=== PATIENT | male | born 1975 | race Hispanic/Latino ===

== ENCOUNTER → 2019-11-21 | Outpatient (CLI) | payer OTHER ==
--- NOTE | 2019-11-21 15:30 | Diagnostic Imaging Report ---
History: Low back pain Comparison studies: None Technique: Sagittal, coronal and axial T2 , sagittal T1 and IR, axial spin density oblique. Intravenous contrast: None Findings: Number of lumbar vertebral bodies:5 Alignment: Normal lordosis.No scoliosis. Soft tissues: No T2 hyperintense inflammatory changes. Paraspinal muscles: No signal abnormalities. No atrophy. Lower thoracic cord:Normal in signal and morphology. The tip of the conus is at L1 superior endplate. Cauda equina: No masses. No arachnoiditis. Vertebrae: Normal signal intensity. Chronic mild wedge deformity at T11 vertebral body, likely physiologic No compression fractures, infection or neoplasm. Degenerative changes: L1-L2: No abnormalities. L2-L3: No abnormalities. L3-L4: No abnormalities. L4-L5: Disc degeneration with loss of T2 signal. Diffuse disc bulge with superimposed central and right central disc protrusion (3 mm in AP dimension) results in mild impression on the thecal sac and narrowing of the right subarticular recess. Patent foramina. L5-S1: No abnormalities. Additional findings: None IMPRESSION: Central and right central disc protrusion at L4-L5 results in mild impression of the thecal sac and narrowing of the right subarticular recess, without evidence of nerve root impingement. Grossly patent canal and foramina. Signed by: DR Daniel Bellamy M.D. on 11/21/2019 3:27 PM
== END ==
LOC: MRI 13:03
PROVIDERS: ATTEND Family Medicine
DX: M54.5 Low back pain (principal)
CPT/HCPCS: 72148